=== PATIENT | female | born 1970 | race Caucasian/White ===

== ENCOUNTER 2017-09-25 05:28 | Day surgery (SDC) | payer OTHER ==
[~2017-09-25] VITALS: Ht 160 cm; Wt 88.5 kg
[~2017-09-25 05:28] MED LIST: BUSPAR15 MG PO; CEFTIN500 MG PO; CLONAZEPAM1 MG PO; CLONAZEPAM2 MG PO; CYCLOBENZAPRINE10 MG PO; CYMBALTA30 MG PO; CYMBALTA60 MG PO; Cymbalta PO; DESYREL 150 MG150 MG PO; DULOXETINE HCL30 MG PO; FLEXERIL10 MG PO; HYDROCODON-ACE1 EAC9 PO; LAMICTAL100 MG PO; LAMICTAL25 MG PO; LEVOTHROID100 MCG PO; LEVOTHYROXINE100 MCG PO; LEXAPRO20 MG PO; LUNESTA3 MG PO; LYRICA300 MG PO; LYRICA75 MG PO; MOTRIN IB200 MG PO; MS CONTIN,ORAMO15 M1 PO; OSPHENA60 MG PO; PERCOCET 5/31 TABLET PO; PROMETHAZINE HC25 M1 PO; RELPAX40 MG PO; TORADOL10 MG PO; TRAZODONE HCL150 MG PO; ULTRAM50 MG PO; VITAMIN D32000 UNI1 PO; XYZAL5 MG PO; [UNRECOGNIZED DRUG - OTHER] PO
[2017-09-25 07:14] VITALS: BP 134/83
[2017-09-25 09:12] VITALS: BP 132/73
== END 2017-09-25 10:00 | disposition home or self-care (01) ==
LOC: SDC 05:28
PROVIDERS: Urology
DX: N20.1 Calculus of ureter (principal); Z87.442 Personal history of urinary calculi; F17.210 Nicotine dependence, cigarettes, uncomplicated; Z88.0 Allergy status to penicillin; Z88.2 Allergy status to sulfonamides; Z88.5 Allergy status to narcotic agent; Z80.3 Family history of malignant neoplasm of breast; Z82.0 Family history of epilepsy and other diseases of the nervous system; Z82.49 Family history of ischemic heart disease and other diseases of the circulatory system; Z90.49 Acquired absence of other specified parts of digestive tract; Z90.710 Acquired absence of both cervix and uterus
CPT/HCPCS: 82365 90; C1769; C2625; J0690; J1100; J2250; J2405; J3010